=== PATIENT | male | born 2000 | race Caucasian/White ===

== ENCOUNTER 2022-04-19 19:50 | Emergency (ER) | payer BC, SELFPAY ==
[2022-04-19 20:04] VITALS: BP 127/76; PULSE 79; RESP 18; TEMP 36.2; O2SAT 100
--- NOTE | 2022-04-19 20:16 | CRLHL7_ITS ---
For Patients: As a result of the Century Cures Act, medical imaging exams and procedure reports are released immediately into your electronic medical record. You may view this report before your referring provider. If you have questions, please contact your health care provider. INDICATION: Headache TECHNIQUE: CT head without contrast. COMPARISON: None FINDINGS: CSF spaces: Within normal limits for age. Brain parenchyma: The katz-white differentiation is normal. No sign of mass, hemorrhage, or midline shift. Skull base and calvarium: The visualized paranasal sinuses and mastoid air cells demonstrate no acute or significant findings. The visualized orbits are grossly unremarkable. No skull fractures. IMPRESSION: Unremarkable noncontrast head CT. Dictated by Florentin Boyd MD @ 04/19/2022 8:49:18 PM Please note that all CT scans at this facility use dose modulation, iterative reconstruction, and/or weight-based dosing when appropriate to reduce radiation dose to as low as reasonably achievable. Dictated by: Florentin Boyd MD @ 04/19/2022 20:49:23 (Electronically Signed)
--- NOTE | 2022-04-19 20:22 | ED.HA ---
HPI - Headache General Chief Complaint: Headache/Migraine Stated Complaint: Headache Time Seen by Provider: 04/19/22 20:17 History of Present Illness HPI Narrative: This 22-year-old male comes from urgent care at [facility], [place], operated by [facility] for CT scan of his head. He was evaluated there for headaches that have been occurring over the past week. He states that the pain ranges from 3 to 9 out of 10 in severity. He does not report a prior history of headaches. He is on the college football team but denies having any injury related to this headache. He does not have any sensitivity to light or nausea or vomiting. He is not displaying any neurologic deficit. He states that he has not taken any medicines for this headache. Related Data Home Medications Medication Instructions Recorded Confirmed dextroamphetamine-amphetamine PO 04/19/22 04/19/22 [Adderall] levothyroxine 50 mcg capsule 50 mcg PO QDAY 04/19/22 04/19/22 Allergies Allergy/AdvReac Type Severity Reaction Status Date / Time Sulfa (Sulfonamide Allergy Mild Rash Verified 04/19/22 18:45 Antibiotics) Review of Systems Status of ROS: Reports: 10 or more systems reviewed and unremarkable except as noted in History and below Narrative: Constitutional: No fevers, no weight gain or loss. Eyes: No discharge. No vision changes. HENT: No congestion, no sore throat, no ear pain. Cardiovascular: No chest pain, no palpitations. Respiratory: No shortness of breath, no wheezes, no cough. Gastrointestinal: No abdominal pain, no vomiting, no diarrhea. Genitourinary: No dysuria, no hematuria. Musculoskeletal: Normal range of motion. Skin: No rashes, no pruritis. Neurological: No dizziness, weakness, sensory change, speech change. Endo/Heme/Allergies: No bruising or bleeding. No polydipsia. Pysch: no suicidality, no anxiety, no insomnia. All other systems reviewed and are negative. PFSH PFSH Social History Smoking Status: Never smoker Do you use any of these nicotine containing products: None Non-prescribed substance use: denies use service: No Exam Narrative: Exam Narrative: Constitutional: Well-developed, well-nourished, no acute distress. HEENT: Normocephalic, atraumatic. Neck: Normal range of motion. Nontender. Supple. Heart: Regular. No murmurs. Normal rate. Intact distal pulses. Lungs: Clear to auscultation. No chest discomfort. No wheezes, rhonchi, or rales. Abdomen: Normal bowel sounds. Nontender. No rebound tenderness. Genitalia: Deferred. Back: No midline tenderness. Normal range of motion. Extremities: Normal range of motion. No injury. Skin: Intact. No rash. Warm. No erythema or pallor. Neurologic: No altered sensation. No weakness. Alert and oriented. Psychiatric: No suicidality. No anxiety or depression. No insomnia. Nursing notes and vitals signs are reviewed. Const: Vital Signs, click to edit/add: Vital Signs - 24 hr 04/19/22 20:04 Temperature 97.1 F L Pulse Rate [Right Femoral] 79 Respiratory Rate 18 Blood Pressure [Ri ght Upper Arm] 127/76 Pulse Oximetry 100 Oxygen Delivery Me thod Room Air Course Vital Signs Vital signs: Initial Vital Signs Temperature 97.1 F L 04/19/22 20:04 Temperature Source Temporal Artery Scan 04/19/22 20:04 Pulse Rate 79 04/19/22 20:04 Pulse Rhythm 04/19/22 20:04 Pulse Strength 0+ Absent 04/19/22 20:04 Respiratory Rate 18 04/19/22 20:04 Blood Pressure 127/76 04/19/22 20:04 Blood Pressure Mean 93 04/19/22 20:04 Blood Pressure Position Sitting 04/19/22 20:04 Pulse Oximetry 100 04/19/22 20:04 Oxygen Delivery Method 04/19/22 20:04 Vital Signs Temperature 97.1 F L 04/19/22 20:04 Pulse Rate 79 04/19/22 20:04 Respiratory Rate 18 04/19/22 20:04 Blood Pressure 127/76 04/19/22 20:04 Pulse Oximetry 100 04/19/22 20:04 Oxygen Delivery Method 04/19/22 20:04 Temperature 97.1 F L 04/19/22 20:04 Pulse Rate 79 04/19/22 20:04 Respiratory Rate 18 04/19/22 20:04 Blood Pressure 127/76 04/19/22 20:04 Pulse Oximetry 100 04/19/22 20:04 Oxygen Delivery Method 04/19/22 20:04 MDM - Headache MDM Narrative Medical decision making narrative: This patient has headache symptoms as described above. The intensity of the headache is fluctuant. He is not exhibiting any neurologic deficits. He does not appear to be in any significant distress. I offered various ways to treat his symptoms. He thought that it would be enough to get some ibuprofen. A CT scan of the head was done and returns with no acute findings. Imaging Data CT scan - head: Radiologist's impression: Unremarkable noncontrast head CT. Discharge Plan Discharge Clinical Impression: Headache Patient Disposition: Home, Self-Care Condition: Stable Additional Instructions: Use [id number] medicines as needed and directed. Follow up with MD or return if worsening symptoms happen. Prescriptions: No Action levothyroxine 50 mcg capsule 50 mcg PO QDAY dextroamphetamine-amphetamine [Adderall] PO Rx Instructions: once daily on school days Follow Up/Referrals: Provider,Not a Local [Primary Care Provider] - Stand Alone Forms: [facility] Info Instructions
[2022-04-19] MEDS: IBUPROFEN 200 MG TABLET 600 MG PO (20:26)
[2022-04-19 21:15] VITALS: BP 136/60; PULSE 80; RESP 18; O2SAT 97
== END 2022-04-19 21:17 | disposition home or self-care (01) ==
PROVIDERS: Emergency Provider Emergency Medicine Emergency Medical Services
DX: R51.9 Headache, unspecified (principal)
CPT/HCPCS: 70450; 99284; A9270

== ENCOUNTER 2024-04-23 18:13 | Emergency (ER) | payer OTHER, SELFPAY ==
[2024-04-23 18:18] VITALS: BP 145/77; PULSE 78; RESP 16; TEMP 36.6; O2SAT 98; BMI 37.6
--- NOTE | 2024-04-23 18:45 | ED.GENADULT ---
HPI - General Adult General Time Seen by Provider: 18:46 Date Seen: 04/23/24 Chief complaint: Ear/Nose/Throat Problem Stated complaint: lump in throat Time Seen by Provider: 04/23/24 18:23 Source: patient and RN notes reviewed Mode of arrival: ambulatory Limitations: no limitations History of Present Illness HPI narrative: This 24-year-old male is coming in with a sensation of a lump and pain in the left side of his throat. This is not getting worse but is not improving, has been present and is seeming to stay stable E there. It does hurt to swallow, he can feel it even with liquids, solids too. There have been no fevers. His tonsils are still in place. He has a history of mono. He did have MRSA in his right tenriism 2 months ago. He is having no dysphagia, food is not getting caught. He is on Synthroid for hypothyroidism, has been on this since age 8. He states his mom is worried that maybe is thyroid has swollen. Reviewed with no that most often for patients with thyroiditis, the thyroid will burn out and then they become hypothyroid, it is not usual that we would see thyroid swelling again. He has not been sick with any recent cough or cold symptoms per report. He notes no difficulty breathing, played a full football game this weekend with these symptoms without any difficulty. His had no night sweats. Patient is a [employer] student. Related Data Home Medications ?Medication ?Instructions ?Recorded ?Confirmed dextroamphetamine-amphetamine PO 04/19/22 05/12/23 [Adderall] levothyroxine 50 mcg capsule 50 mcg PO QDAY 04/19/22 04/23/24 Previous Rx's ?Medication ?Instructions ?Recorded albuterol sulfate 90 mcg/actuation 2 puff inhalation Q4-6H PRN 05/12/23 aerosol inhaler shortness of breath or wheezing #8.5 grams Allergies Allergy/AdvReac Type Severity Reaction Status Date / Time Sulfa (Sulfonamide Allergy Mild Rash Verified 04/23/24 20:02 Antibiotics) Review of Systems Status of ROS: Reports: 6 or more systems reviewed and unremarkable except as noted in History and below [facility] Medical History (Updated 04/23/24 @ 20:52 by Marisol Martins MD) Hypothyroidism ?E03.9 - Hypothyroidism, unspecified (ICD-10) Social History Smoking Status: Never smoker Do you use any of these nicotine containing products: None Second hand tobacco smoke exposure: No How often do you have a drink containing alcohol: 2-3 times a week How many standard drinks containing alcohol do you have on a typical day: 1 or 2 AUDIT-C Alcohol total score: 3 Non-prescribed substance use: denies use service: No Exam Const: Vital Signs, click to edit/add: Vital Signs - 24 hr 04/23/24 18:18 Temperature 97.9 F Pulse Rate [Pulse Oximeter] 78 Respiratory Rate 16 Blood Pressure [Ri ght Upper Arm] 145/77 H Pulse Oximetry 98 Oxygen Delivery Me thod Room Air This 24-year-old male is alert, interactive, no apparent distress. Ambulatory into the ED of his own accord. On inspection, note no swelling, no visible lumps or abnormalities on his head or neck. Pupils are equal round reactive to light, sclera clear, extraocular muscles intact. TMs canals are normal. Face is atraumatic, symmetrical function. Oropharynx with about 1+ tonsils, no exudates erythema, note no abnormality. Posterior pharynx looks normal. Oral mucosa, tongue, dentition looked to be normal. No submental masses, no submental adenopathy. Neck is supple, feel no definite adenopathy or masses. He feels the area below the jaw in the left neck. I do not feel any thyromegaly or masses. Neck is supple. Breathing easily on room air, lungs are clear without wheezing or crackles, no tachypnea. CV regular rate and rhythm, no murmur, normal S1-S2. Documenting provider has reviewed patient's vital signs: yes Course Course ED Course: Reviewed with patient that we will be initiating CT soft tissue of his neck. This will see his thyroid as well. We will do basic labs. This could be globus sensation, neck mass, adenopathy issues. Does not appear to be his tonsils but the CT imaging certainly will elucidate that further. He is currently hemodynamically stable, afebrile, protecting his airway without any concerns. Reevaluation(s) Time of Reevaluation #1: 19:29 Reevaluation #1: Patient requested that is TSH be checked. Had considered adding this on myself but will do so now that he has requested. Nursing staff will explain to him that this test can take a while, may not have the results back during his evaluation here, this is potentially something we may follow-up on later, just depends on the timing and length of his evaluation here. Time of Reevaluation #2: 20:47 Reevaluation #2: Reviewed with no that his soft tissue neck CT showing reactive cervical lymphadenopathy. With normal inflammatory markers and normal CBC, no tonsillar changes on his soft tissue neck, do not think any intervention with treatment with antibiotics or further workup is necessary. We did discuss signs and symptoms for follow-up, if not improving over the next few weeks, do recommend he see ENT. If he feels his symptoms are worsening, develops sore throat or fever with them, do recommend re-evaluation in the ER. Hopefully this will resolve over the next 1-2 weeks. Vital Signs Vital signs: Initial Vital Signs Temperature 97.9 F 04/23/24 18:18 Temperature Source Temporal Artery Scan 04/23/24 18:18 Pulse Rate 78 04/23/24 18:18 Respiratory Rate 16 04/23/24 18:18 Blood Pressure 145/77 H 04/23/24 18:18 Blood Pressure Mean 99 04/23/24 18:18 Blood Pressure Position Sitting 04/23/24 18:18 Pulse Oximetry 98 04/23/24 18:18 Oxygen Delivery Method Room Air 04/23/24 18:18 Vital Signs Temperature 97.9 F 04/23/24 18:18 Pulse Rate 78 04/23/24 18:18 Respiratory Rate 16 04/23/24 18:18 Blood Pressure 145/77 H 04/23/24 18:18 Pulse Oximetry 98 04/23/24 18:18 Oxygen Delivery Method Room Air 04/23/24 18:18 Temperature 97.9 F 04/23/24 18:18 Pulse Rate 78 04/23/24 18:18 Respiratory Rate 16 04/23/24 18:18 Blood Pressure 145/77 H 04/23/24 18:18 Pulse Oximetry 98 04/23/24 18:18 Oxygen Delivery Method Room Air 04/23/24 18:18 Medical Decision Making Lab Data Lab results reviewed: Yes I reviewed the patient's lab results Labs: Lab Results 09/23/24 09/23/24 Range/Units 19:25 19:28 WBC 6.65 (4.50-11.00) K/uL RBC 4.87 (4.30-5.90) m/uL Hgb 14.8 (13.5-17.5) gm/dL Hct 44.0 (37.0-53.0) % MCV 90 (80-100) fL MCH 30 (26-34) pg MCHC 34 (32-36) gm/dL RDW Coeff of Jorge 12.0 (11.5-15.5) % Plt Count 231 (140-440) K/uL Neut % (Auto) 53.8 (42.0-72.0) % Lymph % (Auto) 33.1 (20-44) % [place] % (Auto) 8.6 (0.0-11.0) % Eos % (Auto) 3.6 (0.0-7.0) % Baso % (Auto) 0.6 (0.0-3.0) % Neut # (Auto) 3.58 (1.7-7.0) K/uL Lymph # (Auto) 2.20 (0.90-2.90) K/uL [place] # (Auto) 0.60 (0.00-0.90) K/UL Eos # (Auto) 0.24 (0.00-0.50) K/uL Baso # (Auto) 0.04 (0.00-0.30) K/uL Abs Immat Gran (auto) 0.02 (0.00-0.30) K/uL Imm/Tot Granulo (auto) 0.3 % ESR 9 (2-15) mm/hr Sodium 139 (135-149) mmol/L Potassium 3.9 (3.6-5.1) mmol/L Chloride 104 (96-114) mmol/L Carbon Dioxide 23 (20-32) mmol/L Anion Gap 12 (7-15) mEq/L BUN 23 (5-24) mg/dL Creatinine 1.2 (0.5-1.5) mg/dL Estimated Creat Clear 109.12 Estimated GFR 88 ml/min Glucose 107 (60-115) mg/dL Calcium 9.6 (8.4-10.6) mg/dL C-Reactive Protein 0.6 (0.5-1.0) mg/dL Lab Acknowledgement Test Added Imaging Data CT- Other: Attestation: I have reviewed the pertinent imaging results. Radiologist's impression: Patient: GILA ROSADO Facility:?[facility] Patient ID:?[id number] Site Patient ID:?[id number]. Site :?[id number] Study:?CT-ST Neck W/ 139CC ISOVUE 370-04/23/2024 8:04:54 PM Ordering Physician:Al Damon Final Report: INDICATION: Left-sided throat pain. TECHNIQUE: CT of the neck with 139 cc Isovue 370 iodinated contrast agent. COMPARISON: None. FINDINGS: Nasopharynx: Within normal limits. Oropharynx: Within normal limits. Oral cavity: Within normal limits. Supraglottic, glottic and infraglottic larynx: Within normal limits. Hypopharynx: Within normal limits. Airway including the trachea: Within normal limits. Salivary glands and thyroid gland: Within normal limits. Lymph nodes and other cervical soft tissues: Multiple mildly prominent upper cervical lymph nodes, likely reactive. Vascular Structures: Within normal limits. Osseous structures: Within normal limits. Paranasal sinuses and mastoid air cells: Within normal limits. Teeth: Within normal limits. Imaged orbits and intracranial contents: Within normal limits. Imaged chest wall, mediastinum and upper lungs: Within normal limits. IMPRESSION: 1. No suspicious enhancement or neck mass. 2. No evidence of acute inflammation. 3. Multiple mildly prominent cervical lymph nodes, likely reactive in etiology. Please note that all CT scans at this facility use dose modulation, iterative reconstruction, and/or weight-based dosing when appropriate to reduce radiation dose to as low as reasonably achievable. Dictated by Pasha Salinas MD @ 04/23/2024 8:16:05 PM (Electronic Signature) Discharge Plan Discharge Clinical Impression: Reactive cervical lymphadenopathy, Hypothyroidism Patient Disposition: Home, Self-Care Condition: Stable Instructions: Lymphadenopathy (ED) Additional Instructions: Can certainly try some Tylenol or ibuprofen per bottle directions to see if it helps with discomfort. This hopefully will start to resolve over the next 1-2 weeks. If it is not worsening but not resolving, would recommend ENT follow-up. Dr. Márquez comes to the [facility] here but his scheduling is done through our [facility]. To schedule to see him in [place], call [phone]. If you feel that your symptoms are worsening at any point, develop new or concerning symptoms, develops fever with this, do recommend re-evaluation in the ER. Activity Level: Activity as Tolerated Discharge Diet: Regular Prescriptions: No Action levothyroxine 50 mcg capsule 50 mcg PO QDAY dextroamphetamine-amphetamine [Adderall] PO Rx Instructions: once daily on school days albuterol sulfate 90 mcg/actuation HFA aerosol inhaler 2 puff inhalation Q4-6H PRN (Reason: shortness of breath or wheezing) Qty: 8.5 0RF Follow Up/Referrals: Provider,Not a Local [Primary Care Provider] - Stand Alone Forms: [employer] Info Instructions
--- NOTE | 2024-04-23 19:04 | CRLHL7_ITS ---
For Patients: As a result of the Century Cures Act, medical imaging exams and procedure reports are released immediately into your electronic medical record. You may view this report before your referring provider. If you have questions, please contact your health care provider. INDICATION: Left-sided throat pain. TECHNIQUE: CT of the neck with 139 cc Isovue 370 iodinated contrast agent. COMPARISON: None. FINDINGS: Nasopharynx: Within normal limits. Oropharynx: Within normal limits. Oral cavity: Within normal limits. Supraglottic, glottic and infraglottic larynx: Within normal limits. Hypopharynx: Within normal limits. Airway including the trachea: Within normal limits. Salivary glands and thyroid gland: Within normal limits. Lymph nodes and other cervical soft tissues: Multiple mildly prominent upper cervical lymph nodes, likely reactive. Vascular Structures: Within normal limits. Osseous structures: Within normal limits. Paranasal sinuses and mastoid air cells: Within normal limits. Teeth: Within normal limits. Imaged orbits and intracranial contents: Within normal limits. Imaged chest wall, mediastinum and upper lungs: Within normal limits. IMPRESSION: 1. No suspicious enhancement or neck mass. 2. No evidence of acute inflammation. 3. Multiple mildly prominent cervical lymph nodes, likely reactive in etiology. Please note that all CT scans at this facility use dose modulation, iterative reconstruction, and/or weight-based dosing when appropriate to reduce radiation dose to as low as reasonably achievable. Dictated by Pasha Salinas MD @ 04/23/2024 8:16:05 PM (Electronically Signed)
[2024-04-23 19:32] LABS: Basophils Absolute Auto 0.04 K/uL (0.00-0.30); Basophils Percent Auto 0.6 % (0.0-3.0); Eosinophils Absolute Auto 0.24 K/uL (0.00-0.50); Eosinophils Percent Auto 3.6 % (0.0-7.0); Hemoglobin* 14.8 gm/dL (13.5-17.5); Immature Granulocytes Abs Auto 0.02 K/uL (0.00-0.30); Immature Granulocytes Pct Auto 0.3 %; Lymphocytes Percent Auto 33.1 % (20-44); Mean Corpuscular HGB Conc 34 gm/dL (32-36); Mean Corpuscular Hemoglobin 30 pg (26-34); Mean Corpuscular Volume 90 fL (80-100); Monocytes Percent Auto 8.6 % (0.0-11.0); Neutrophils Absolute Auto 3.58 K/uL (1.7-7.0); Neutrophils Percent Auto 53.8 % (42.0-72.0); Platelet Count* 231 K/uL (140-440); Red Blood Count 4.87 m/uL (4.30-5.90); White Blood Count* 6.65 K/uL (4.50-11.00)
[2024-04-23 19:47] LABS: Chloride* 104 mmol/L (96-114); Potassium* 3.9 mmol/L (3.6-5.1); Sodium* 139 mmol/L (135-149)
[2024-04-23 19:50] LABS: Anion Gap 12 mEq/L (7-15); Blood Urea Nitrogen* 23 mg/dL (5-24); Carbon Dioxide* 23 mmol/L (20-32); Creatinine* 1.2 mg/dL (0.5-1.5); Est. Creatinine Clearance* 109.12; Estimated Glomerular Filt Rate 88 ml/min
[2024-04-23 19:51] LABS: Calcium* 9.6 mg/dL (8.4-10.6); Glucose* 107 mg/dL (60-115)
[2024-04-23 19:52] LABS: Slide Review Reflex No
[2024-04-23 19:53] LABS: C Reactive Protein* 0.6 mg/dL (0.5-1.0)
[2024-04-23 20:23] LABS: Erythrocyte SedimentationRate* 9 mm/hr (2-15)
[2024-04-23 21:02] VITALS: BP 132/68; PULSE 78; RESP 16; TEMP 36.9
== END 2024-04-23 21:02 | disposition home or self-care (01) ==
PROVIDERS: Emergency Provider Family Medicine
DX: R59.1 Generalized enlarged lymph nodes (principal); E03.9 Hypothyroidism, unspecified
CPT/HCPCS: 36415; 70491; 80048; 84443; 85025; 85651; 86140; 99283; 99284; Q9967